=== PATIENT | female | born 1985 | race Caucasian/White ===

== ENCOUNTER 2021-02-01 09:26 | Emergency (ER) | payer OTHER, SELFPAY ==
--- NOTE | ~2021-02-01 | XR_ITS ---
EXAMINATION: XR ribs BI 3V w CXR 2V EXAM DATE: 02/01/2021 10:15 INDICATION: Bilateral rib pain, chest pain. No known recent injury. TECHNIQUE: Frontal projection of the upper left ribs, frontal projection of the lower left ribs, obli que projection of the left ribs. Frontal projection of the upper right ribs, frontal projection of t he lower right ribs, oblique projection of the right ribs, frontal and lateral chest x-ray(s) for in terpretation. There is no prior study for comparison. FINDINGS: There are no displaced acute rib fractures identified. There are no osteoblastic or osteol ytic lesions identified. Cardiomediastinal silhouette is normal. No confluent consolidation, pneumoth orax or pleural effusion suspected. IMPRESSION: Unremarkable chest x-ray, bilateral rib exam. Reviewed, dictated and finalized at location A.
[2021-02-01 09:33] VITALS: BP 142/81; PULSE 100; RESP 12; TEMP 36.3; O2SAT 100
[2021-02-01 09:42] VITALS: PULSE 91
--- NOTE | 2021-02-01 09:59 | ECG_ITS ---
Measurements Intervals [place] Rate: 75 P: 60 TN: 148 QRS: 60 QRSD: 91 T: 15 QT: 373 QTc: 419 Interpretive Statements SINUS RHYTHM BORDERLINE ST-T WAVE ABNORMALITY- INFERIOR LEADS BASELINE ARTIFACT- II, III, AVF, V3-V6 BORDERLINE ECG Electronically Signed On 02-01-2021 14:27:59 CDT by Cachorro Block D.O.
--- NOTE | 2021-02-01 10:05 | PC.NURSE ---
Pt to XY via stretcher at this time.
[2021-02-01 10:12] LABS: Basophils Percent Auto 0.4 % (0.2-1.2); Eosinophils Absolute Auto 0.1 K/mm3 (0-0.3); Eosinophils Percent Auto 2.5 % (0-4.4); Hematocrit 39.4 % (37.0-47.0); Immature Granulocyte Absolute 0.02 K/mm3 (0.00-0.031); Immature Granulocyte Percent A 0.4 % (0-0.5); Lymphocytes Absolute Auto 1.87 K/mm3 (0.9-3.2); Lymphocytes Percent Auto 36.2 % (18.3-44.2); Mean Corpuscular Hemoglobin 29.3 pg (26-34); Mean Corpuscular Volume 88.9 fl (80-100); Mean Platelet Volume 9.6 fl (7.4-10.4); Monocytes Absolute Auto 0.6 K/mm3 (0.1-0.6); Monocytes Percent Auto 12.2 % (2.6-8.5); Neutrophils Absolute Auto 2.5 K/mm3 (1.3-6.7); Neutrophils Percent Auto 48.3 % (45.5-73.1); Platelet Count Result 282 k/mm3 (150-375); Red Blood Count 4.43 M/mm3 (4.2-5.4); Red Cell Distribution Width 13.5 % (11.5-14.5); White Blood Count 5.2 K/mm3 (4.5-10.0)
[2021-02-01 10:23] LABS: Anion Gap 8 mmol/L (8-16); Blood Urea Nitrogen 9 mg/dL (7-17); Calcium 9.3 mg/dL (8.4-10.2); Carbon Dioxide 26 mmol/L (22-30); Chloride 105 mmol/L (98-107); Estimated CRCL calculation 66 ml/min; Estimated Glomerular Filt Rate > 60; Glucose 100 mg/dL (65-105); INR 0.9; Potassium 3.7 mmol/L (3.4-5.0); Prothrombin Time 12.7 Seconds (11.1-14.7); Sodium 139 mmol/L (137-145)
[2021-02-01 10:25] LABS: Partial Thromboplastin Time 26.7 SECONDS (22.3-36.8)
[2021-02-01 10:35] LABS: Troponin I < 0.012 ng/mL (0.000-0.034)
--- NOTE | 2021-02-01 10:37 | ED.GENADULT ---
HPI - General Adult General Chief complaint: Unspecified Stated complaint: rib pain Time Seen by Provider: 02/01/21 09:57 Source: patient Mode of arrival: ambulatory Limitations: no limitations History of Present Illness HPI narrative: This is a 35 year old female that presents to the ER for bilateral rib pain x 1 month. Reports the pain is squeezing in nature. She has been seeing her primary doctor for this who ordered an outpatient CT scan, but the pain became more sharp today so she decided to come to the ED to be seen. Pain is worse with palpation of the area. Denies fever, cough, shortness of breath, recent travel or surgery, or lower extremity edema. Related Data Home Medications Medication Instructions Recorded Confirmed cyclobenzaprine mg 02/01/21 drospirenone-ethinyl estradiol tablet 02/01/21 [Nat] Allergies Allergy/AdvReac Type Severity Reaction Status Date / Time No Known Allergies Allergy Mild Verified 02/01/21 09:42 Review of Systems Review of Systems: Narrative: CONSTITUTIONAL: Denies fever CARDIOVASCULAR: Reports chest pain. Denies edema. RESPIRATORY: Denies cough or dyspnea. All systems reviewed & are unremarkable except as noted in HPI and below PMFSH Past Medical History Medical History (Updated 02/01/21 @ 12:12 by Background Daemon) Chest wall pain No active medical problems Social History Social History Smoking status: Never smoker Alcohol intake: current Gender identity (if verbalized by the patient): Female Exam Narrative: Exam Narrative: GENERAL: Well-appearing, well-nourished, and in no acute distress. HEAD: Normocephalic, atraumatic. EYES: EOMI. CHEST: Clear to auscultation. No respiratory distress. No wheezes rales or rhonchi. Tender to palpation of lower, lateral chest wall bilaterally HEART: Regular rate and rhythm. No murmur heard. Normal peripheral pulses. EXTREMITIES: Normal range of motion. No edema. SKIN: Warm, dry, no rash. NEURO: No focal deficits. Alert and oriented x3. PSYCH: Normal mood and affect Course Vital Signs Vital signs: Vital Signs Temperature 97.3 F L 02/01/21 09:33 Pulse Rate 100 02/01/21 09:33 Respiratory Rate 12 02/01/21 09:33 Blood Pressure 142/81 H 02/01/21 09:33 Pulse Oximetry 100 02/01/21 09:33 Temperature 97.3 F L 02/01/21 09:33 Pulse Rate 91 02/01/21 09:42 Respiratory Rate 12 02/01/21 09:33 Blood Pressure 142/81 H 02/01/21 09:33 Pulse Oximetry 100 02/01/21 09:33 Medical Decision Making MDM Narrative Medical decision making narrative: Patient presents the emergency department for bilateral rib pain present over the last month. She is afebrile and nontoxic-appearing. Oxygen saturation is normal on room air. CBC and metabolic panel without concerning findings. Bilateral rib/chest x-ray is without acute changes. EKG without concerning changes and baseline troponin is negative. D-dimer is not elevated. Pain does seem to be more musculoskeletal as she is tender to palpation in the area. Patient is stable and felt appropriate for further outpatient evaluation. Patient instructed to follow-up with her primary care provider. She was given warnings to return to the ER Vital Signs Vital Signs: Vital Signs Temperature 97.3 F L 02/01/21 09:33 Pulse Rate 100 02/01/21 09:33 Respiratory Rate 12 02/01/21 09:33 Blood Pressure 142/81 H 02/01/21 09:33 Pulse Oximetry 100 02/01/21 09:33 Temperature 97.3 F L 02/01/21 09:33 Pulse Rate 91 02/01/21 09:42 Respiratory Rate 12 02/01/21 09:33 Blood Pressure 142/81 H 02/01/21 09:33 Pulse Oximetry 100 02/01/21 09:33 Lab Data Lab results reviewed: Yes I reviewed the patient's lab results. Result diagrams: 02/01/21 10:05 02/01/21 10:05 Labs: Lab Results 02/01/21 02/01/21 02/01/21 Range/Units 10:05 10:05 10:05 WBC 5.2 (4.5-10.0) K/mm3 RBC 4.43 (4.2-5.4) M/mm3 Hgb 13.0 (12.0-1
[2021-02-01 10:40] LABS: D Dimer 0.36 ug/mL (<0.48)
[2021-02-01] MEDS: ACETAMINOPHEN 500 MG TABLET 1000 MG PO (11:06)
[2021-02-01] MEDS: KETOROLAC 30 MG/ML VIAL (*BKC) IV PUSH (11:06)
[2021-02-01 12:21] VITALS: BP 116/63; PULSE 79; RESP 16; O2SAT 100
== END 2021-02-01 12:22 | disposition home or self-care (01) ==
PROVIDERS: Physician Assistant; Emergency Provider Emergency Medicine; PCP Nurse Practitioner Family
DX: R07.81 Pleurodynia (principal)
CPT/HCPCS: 36415; 71046; 71110; 80048; 84484; 85025; 85380; 85610; 85730; 93005; 96374; 99284; A9270; J1885

== ENCOUNTER 2021-02-04 14:43 | Outpatient (CLI) | payer OTHER, SELFPAY ==
--- NOTE | ~2021-02-04 | CT_ITS ---
EXAMINATION: CTA chest PE protocol DATE: 02/04/2021 15:13 INDICATION: Thoracic back pain. TECHNIQUE: Computed tomography angiography (CTA) of the chest was performed with 100 mL Omnipaque-350 intravenous contrast timed to evaluate the pulmonary arteries. Coronal maximum intensity projection 3D-reconstructions were created by the technologist. Automated exposure control and iterative reconst ruction technique were employed. The dose-length product was 193.48 mGy-cm. COMPARISON: None. FINDINGS: There is a 3 mm nodule in right lung upper lobe, likely benign. There is minimal atelectasi s in right lower lobe. No pleural effusion. The heart size is normal. There is mediastinal and bilate ral hilar lymphadenopathy. For example, a right paratracheal node measures 2.7 x 2.2 cm. A right supr aclavicular node measures 19 x 10 mm. There is no pulmonary embolus. There is mild thoracic spondylos is. IMPRESSION: 1. No pulmonary embolus. 2. Mediastinal, bilateral hilar, and right supraclavicular lymphadenopathy. The differential diagnosi s includes reactive lymphadenopathy such as sarcoid and lymphoma. Ultrasound-guided core needle biops y of a right supraclavicular lymph node is recommended. Reviewed, dictated and finalized at location A. IMPRESSION: 1. No pulmonary embolus. 2. Mediastinal, bilateral hilar, and right supraclavicular lymphadenopathy. The differential diagnosis includes reactive lymphadenopathy such as sarcoid and l ymphoma. Ultrasound-guided core needle biopsy of a right supraclavicular lymph node is recommended.
== END 2021-02-04 14:44 | disposition home or self-care (01) ==
PROVIDERS: PCP Nurse Practitioner Family; Visit Provider Nurse Practitioner Family
DX: M54.6 Pain in thoracic spine (principal); R91.8 Other nonspecific abnormal finding of lung field
CPT/HCPCS: 71275; Q9967

== ENCOUNTER 2021-02-15 12:43 | Outpatient (CLI) | payer OTHER, SELFPAY ==
--- NOTE | ~2021-02-15 | US_ITS ---
EXAMINATION: US biopsy lymph node DATE: 02/15/2021 13:53 INDICATION: Right supraclavicular lymphadenopathy. TECHNIQUE: The procedure including the risks and benefits was discussed with the patient. Risks discu ssed included bleeding and infection. The patient understood the risks and agreed to proceed. The sk in overlying the right supraclavicular region was prepped and draped in usual sterile fashion. Anest hetic was administered with 1% lidocaine subcutaneously. An 18 gauge core biopsy needle was advanced under continuous ultrasound observation to the lesion of interest. 8 core biopsy specimens were obt ained, 3 were placed in formalin and 5 in RPMI media. The needle was removed and the entry site was cleaned and dressed. Post procedure ultrasound demonstrated no hemorrhage. FINDINGS: Ultrasound images demonstrate a 1.8 x 1.7 x 0.7 cm right supraclavicular lymph node. Subseq uent images demonstrate biopsy needle advanced into the lymph node. IMPRESSION: 1. Successful Ultrasound-guided biopsy of a 1.8 x 1.7 x 0.7 cm right supraclavicular lymph node. Reviewed, dictated and finalized at location A. IMPRESSION: 1. Successful Ultrasound-guided biopsy of a 1.8 x 1.7 x 0.7 cm right supraclavi cular lymph node.
== END 2021-02-15 12:44 | disposition home or self-care (01) ==
LOC: ANHIMG 12:44
PROVIDERS: PCP Nurse Practitioner Family; Visit Provider Nurse Practitioner Family
DX: R59.0 Localized enlarged lymph nodes (principal)
CPT/HCPCS: 38505; 76942; 88305; 88312

== ENCOUNTER 2021-03-21 15:29 | Outpatient (CLI) | payer OTHER, SELFPAY ==
--- NOTE | ~2021-03-21 | US_ITS ---
EXAMINATION: US thyroid EXAM DATE: 03/21/2021 16:32 INDICATION: Localized neck swelling, mass, lump. TECHNIQUE: Multiple grayscale and Doppler images of the thyroid were obtained (by a technologist who performed the scan) and subsequently reviewed. Individual nodules and recommendations may be reporte d in accordance with TI-RADS system as designated by the 2017 ACR White Paper TI-RADS committee. The re is no prior study for comparison. FINDINGS: The right thyroid lobe measures 4.5 x 1.1 x 1.0 cm, the left 4.0 x 0.7 x 1.1 cm. These dimensions are within normal size limits. There is homogeneous thyroid echogenicity and expected amount of vascular ity. No focal suspicious nodules are identified. IMPRESSION: 1. Unremarkable thyroid ultrasound exam. Reviewed, dictated and finalized at location G.
[2021-03-21 16:32] LABS: Alanine Aminotransferase 14 U/L (4-35); Albumin Level 4.4 g/dL (3.5-5.1); Alkaline Phosphatase 45 U/L (38-126); Anion Gap 8 mmol/L (8-16); Aspartate Amino Transferase 23 U/L (14-36); Bilirubin,Total 0.5 mg/dL (0.2-1.3); Blood Urea Nitrogen 5 mg/dL (7-17); Calcium 9.2 mg/dL (8.4-10.2); Carbon Dioxide 26 mmol/L (22-30); Chloride 104 mmol/L (98-107); Estimated Glomerular Filt Rate > 60; Glucose 92 mg/dL (65-105); Potassium 3.7 mmol/L (3.4-5.0); Sodium 138 mmol/L (137-145)
[2021-03-21 17:32] LABS: Vitamin D 25 Hydroxy 37.8 ng/mL
[2021-03-26 05:09] LABS: Vitamin D 1,25 (OH)2 Total 27 pg/mL (18-72); Vitamin D2 1,25 (OH)2 <8 pg/mL; Vitamin D3 1,25 (OH)2 27 pg/mL
== END 2021-03-21 15:30 | disposition home or self-care (01) ==
PROVIDERS: PCP Nurse Practitioner Family; Visit Provider Nurse Practitioner Family
DX: R07.89 Other chest pain (principal); R53.82 Chronic fatigue, unspecified; D86.9 Sarcoidosis, unspecified; R22.1 Localized swelling, mass and lump, neck; R06.09 Other forms of dyspnea; Z51.81 Encounter for therapeutic drug level monitoring; Z79.899 Other long term (current) drug therapy
CPT/HCPCS: 36415; 76536; 80053; 82306; 82652

== ENCOUNTER 2021-04-05 12:31 | Outpatient (CLI) | payer OTHER, SELFPAY ==
--- NOTE | 2021-04-05 | ECHO_ITS ---
Patient Info Name: Sonal Marshall Age: 35 years : 1985 Gender: Female Ht: 64 in Wt: 154 lbs BSA: 1.79 m2 HR: 69 bpm BP: 111 / 76 mmHg Heart Rhythm: Sinus Rhythm Technical Quality: Good Exam Date: 04/05/2021 1:31 PM Exam Location: [facility] Patient Status: Outpatient Admit Date: 04/05/2021 Staff Ordering Physician: WALTER LAW MD Plastic Surgery Assistant: Marco Antonio Romano RDCS, RT Attending Provider: WALTER LAW MD Exam Type: CA echo doppler color flow Study Info Complete two-dimensional, color flow and Doppler transthoracic echocardiogram is performed. Strain analysis performed. Summary 1. Complete two-dimensional, color flow and Doppler transthoracic echocardiogram is performed. 2. Unremarkable 2D/Doppler echocardiogram. Left Ventricle Left ventricular chamber dimension is normal. Left ventricular systolic function is normal, estimated at 55-60%. The left ventricular diastolic function is normal. Right Ventricle Right ventricular chamber dimension is normal. Left Atria Left atrial chamber dimension is normal. Right Atria Right atrial chamber dimension is normal. Aortic Valve The aortic valve is normal. Pulmonic Valve The pulmonic valve is normal. Mitral Valve The mitral valve has normal leaflets. Tricuspid Valve The tricuspid valve leaflets are normal. Pericardium/Pleural The pericardium appears normal. Aorta The aortic root size at the sinus of Valsalva is normal. Left Ventricular Outflow Tract Name Value Normal LVOT 2D LVOT Diameter 2.0 cm LVOT Doppler LVOT Peak Gradient 4 mmHg LVOT Mean Gradient 2 mmHg LVOT VTI 19 cm LVOT VTI/AV VTI Ratio 0.7 LVOT Stroke Volume 56 ml LVOT CO 3.8 l/min LVOT CI 2.1 l/min/m2 Mitral Valve Name Value Normal MV Doppler MV Decel [place] 272 cm/s2 MV PHT 68 ms MV Area (PHT) 3.2 cm2 4.0-5.0 MV Diastolic Function MV E Peak Velocity 64 cm/s MV A Peak Velocity 68 cm/s MV E/A 0.9 MV Decel Time 234 ms MV Annular TDI MV E/e' (Septal) 5.5 <=8.0 MV E/e' (Lateral) 5.8 <=8.0 MV E/e' (Average) 5.7 Tricuspid Valve Name Value N
--- NOTE | 2021-04-05 16:16 | WPDPFTINT ---
PFT Procedure Performed PFT Procedure Performed Spirometry with Pre/Post Bronchodilator Plethysmography (Lung Vol) Diffusing Cap (DLCO) Flow Vol Loop PFT Interpretation This is a pulmonary function test with pre and post-bronchodilator spirometry, plethysmography and diffusing capacity. The test was performed and results interpreted in accordance with the 2019 and 2005 ATS/ERS Task Force guidelines respectively using the Global Lung Function Initiative-2012 reference equations. Patient demonstrated good effort and cooperation. Reproducibility criteria were met. The quality of the pre bronchodilator spirometry maneuver was Grade A and post bronchodilator spirometry maneuver was Grade A. Findings: Spirometry: The contour of the inspiratory and expiratory flow tracing are normal. The pre bronchodilator FVC is 3.79 L, 100% predicted. The pre bronchodilator FEV1 is 2.92 L, 93% predicted. The FEV1: FVC ratio 77%. The post bronchodilator FVC is 3.66 L, representing a 3% decrease. The post bronchodilator FEV1 is 3.02 L, representing a 3% increase. Plethysmography: The total lung capacity is 5.23 L, 103% predicted. The functional residual capacity is 2.17 L, 78% predicted. The residual volume is 1.44 L, 97% predicted. Diffusing capacity: The absolute diffusion capacity is 19.6, 80% predicted. The diffusing capacity corrected for alveolar volume is 4.52, 93% predicted. Impression: The spirometry is normal without evidence of an obstructive abnormality. There is no significant improvement after inhaling a single dose of albuterol. The lung volumes are normal. The diffusing capacity is normal. There are no prior studies for comparison
== END 2021-04-05 12:32 | disposition home or self-care (01) ==
PROVIDERS: PCP Nurse Practitioner Family
DX: R07.89 Other chest pain (principal); D86.9 Sarcoidosis, unspecified; R06.09 Other forms of dyspnea; R53.82 Chronic fatigue, unspecified
CPT/HCPCS: 93306; 94060; 94726; 94729

== ENCOUNTER 2021-05-01 16:45 | Outpatient (CLI) | payer OTHER, SELFPAY ==
[2021-05-03 21:30] LABS: Angiotensin Converting Enzyme 35 U/L (9-67)
[2021-05-10 10:33] LABS: TB2-NIL 0.01
[2021-05-10 10:34] LABS: TB1-NIL 0.02
[2021-05-10 10:41] LABS: NIL 0.02; Quantiferon TB Plus, 1T Negative
== END 2021-05-01 16:46 | disposition home or self-care (01) ==
PROVIDERS: PCP Nurse Practitioner Family
DX: R07.89 Other chest pain (principal); R06.09 Other forms of dyspnea; D86.9 Sarcoidosis, unspecified
CPT/HCPCS: 36415; 82164; 84443; 86480

== ENCOUNTER 2021-06-18 10:48 | Outpatient (CLI) | payer OTHER, SELFPAY ==
--- NOTE | ~2021-06-18 | XR_ITS ---
XR wrist RT 2V, XR wrist LT 2V 06/18/2021 11:36 Indication: Rheumatoid arthritis Procedure: 2 views of each wrist Comparison: No prior studies for comparison. Findings: There is anatomic alignment. No fracture, subluxation or dislocation. No significant degene rative or erosive change. No soft tissue abnormality. No foreign bodies. Impression: 1: No significant bone or joint abnormality. Reviewed, dictated and finalized at location A. Impression: 1: No significant bone or joint abnormality. Impression: 1: No significant bone or joint abnormality.
--- NOTE | ~2021-06-18 | XR_ITS ---
XR knee LT 2V 06/18/2021 11:37 INDICATION: Rheumatoid arthritis PROCEDURE: 2 views left knee COMPARISON: No prior studies for comparison. FINDINGS: Fracture, dislocation or subluxation is not identified. No significant joint effusion. No e rosive changes. The soft tissues appear within normal limits. No foreign bodies are identified. IMPRESSION: 1: No significant bone or joint abnormality. Reviewed, dictated and finalized at location A.
--- NOTE | ~2021-06-18 | XR_ITS ---
XR hand BI arthritis min 3V 06/18/2021 11:36 Indication: Rheumatoid arthritis Procedure: 4 views each hand Comparison: No prior studies for comparison. Findings: There is anatomic alignment. No fracture, subluxation or dislocation. No significant soft t issue abnormality. No foreign bodies. Impression: 1: No significant bone or joint abnormality. Reviewed, dictated and finalized at location A. Impression: 1: No significant bone or joint abnormality.
--- NOTE | ~2021-06-18 | XR_ITS ---
XR elbow RT 2V, XR elbow LT 2V 06/18/2021 11:37 Indication: Rheumatoid arthritis Procedure: 2 views each elbow Comparison: No prior studies for comparison. Findings: There is anatomic alignment. No fracture, subluxation or dislocation. No significant soft t issue abnormality. No foreign bodies. Impression: 1: No significant bone or joint abnormality. Reviewed, dictated and finalized at location A. Impression: 1: No significant bone or joint abnormality. Impression: 1: No significant bone or joint abnormality.
--- NOTE | ~2021-06-18 | XR_ITS ---
XR hip RT min 2V, XR hip LT min 2V 06/18/2021 11:37 Indication: Rheumatoid arthritis Procedure: 2 views each hip Comparison: No prior studies for comparison. Findings: There is anatomic alignment. No fracture, subluxation or dislocation. No significant soft t issue abnormality. No foreign bodies. Impression: 1: No significant bone or joint abnormality. Reviewed, dictated and finalized at location A. Impression: 1: No significant bone or joint abnormality. Impression: 1: No significant bone or joint abnormality.
--- NOTE | ~2021-06-18 | XR_ITS ---
XR knee RT 2V 06/18/2021 11:37 Indication: Rheumatoid arthritis Procedure: 2 views right knee Comparison: No prior studies for comparison. Findings: There is anatomic alignment. No fracture, subluxation or dislocation. No significant soft t issue abnormality. No foreign bodies. Impression: 1: No significant bone or joint abnormality. Reviewed, dictated and finalized at location A. Impression: 1: No significant bone or joint abnormality.
[2021-06-18 12:27] LABS: Hematocrit 39.4 % (37.0-47.0); Hemoglobin 12.9 g/dL (12.0-15.0); Mean Corpuscular HGB Conc 32.7 g/dl (32-36); Mean Corpuscular Hemoglobin 29.7 pg (26-34); Mean Corpuscular Volume 90.6 fl (80-100); Platelet Count Result 293 k/mm3 (150-375); Red Blood Count 4.35 M/mm3 (4.2-5.4); Red Cell Distribution Width 14.1 % (11.5-14.5); White Blood Count 7.6 K/mm3 (4.5-10.0)
[2021-06-18 12:44] LABS: Add Urine Microscopic? YES; Appearance Urine Clear (Clear); Bacteria Urine Trace /hpf; Bilirubin Urine Negative (Negative); Blood Urine 1+ (Negative); Color Urine Yellow (Yellow); Glucose Urine UA Negative (Negative); Ketones Urine Negative (Negative); Leukocyte Esterase Ur Negative LEU/UL (NEGATIVE); Mucus Urine Rare /lpf; Nitrate Urine Negative (Negative); Protein Urine 1+ mg/dL (Negative); RBC Urine 0-2 /hpf (0-2); Specific Grav Ur 1.015 (1.001-1.035); Squamous Epithelial Cell Urine Moderate /hpf (Few); Urobilinogen Urine Negative mg/dL (<2.0); WBC Urine 0-3 /hpf (0-3)
[2021-06-18 12:47] LABS: Alanine Aminotransferase 49 U/L (4-35); Albumin Level 4.6 g/dL (3.5-5.1); Alkaline Phosphatase 79 U/L (38-126); Anion Gap 9 mmol/L (8-16); Aspartate Amino Transferase 43 U/L (14-36); Bilirubin,Total 0.8 mg/dL (0.2-1.3); Blood Urea Nitrogen 10 mg/dL (7-17); Calcium 9.4 mg/dL (8.4-10.2); Carbon Dioxide 25 mmol/L (22-30); Chloride 101 mmol/L (98-107); Creatine Kinase 40 U/L (30-135); Estimated Glomerular Filt Rate > 60; Glucose 100 mg/dL (65-110); Magnesium 1.8 mg/dL (1.6-2.3); Sodium 135 mmol/L (137-145); Uric Acid 4.3 mg/dL (2.5-7.5)
[2021-06-18 13:07] LABS: Hemoglobin A1C 5.5 % (<5.7)
[2021-06-18 13:32] LABS: Erythrocyte Sedimentation Rate 19 mm/hr (0-20)
[2021-06-18 13:46] LABS: Rheumatoid Factor < 8.6 IU/ML (<12)
[2021-06-18 13:50] LABS: Folic Acid > 20.0 ng/mL (2.76->20)
[2021-06-18 13:55] LABS: Vitamin D 25 Hydroxy 44.7 ng/mL
[2021-06-18 14:05] LABS: CRP < 0.5 mg/dL (<1.0)
[2021-06-20 11:09] LABS: Anti Nuclear Antibody Pattern Nuclear, Nucleolar
== END 2021-06-18 10:49 | disposition home or self-care (01) ==
LOC: ANHIMG 10:56
PROVIDERS: PCP Nurse Practitioner Family; Visit Provider Internal Medicine Rheumatology
DX: R53.83 Other fatigue (principal); M25.50 Pain in unspecified joint; E83.42 Hypomagnesemia; Z13.1 Encounter for screening for diabetes mellitus; E55.9 Vitamin D deficiency, unspecified; E53.8 Deficiency of other specified B group vitamins; Z51.81 Encounter for therapeutic drug level monitoring
CPT/HCPCS: 36415; 73070; 73100; 73130; 73502; 73560; 80053; 81001; 82306; 82550; 82607; 82746; 83036; 83520; 83735; 84550; 85027; 85652; 86038; 86039; 86140; 86430

== ENCOUNTER 2021-07-16 10:12 | Outpatient (CLI) | payer OTHER, SELFPAY ==
--- NOTE | ~2021-07-16 | MR_ITS ---
EXAMINATION: MR lumbar spine wo con EXAM DATE: 07/16/2021 10:55 INDICATION: Low back pain. TECHNIQUE: Multi-sequential, multiplanar MR images of the lumbar spine were obtained without contrast . Sagittal T1, T2, T2 fat saturation images. Axial T2 weighted images. There is no prior study for comparison. FINDINGS: The vertebral bodies are aligned in the AP dimension. Vertebral body and disc heights are w ell-maintained. There are no suspicious marrow signal abnormalities. Paraspinal soft tissue is unrema rkable. The conus medullaris terminates at the L1 level and has normal signal intensity and morpholog y. Paraspinal soft tissue is unremarkable. Small renal cysts. Level by level evaluation: T12-L1: Disc does not extend beyond the endplate margin. Facet arthropathy: None. Neural foraminal stenosis: No stenosis. Central canal stenosis: No stenosis. L1-L2: Disc does not extend beyond the endplate margin. Facet arthropathy: None. Neural foraminal stenosis: No stenosis. Central canal stenosis: No stenosis. L2-L3: Disc does not extend beyond the endplate margin. Facet arthropathy: None. Neural foraminal stenosis: No stenosis. Central canal stenosis: No stenosis. L3-L4: Disc does not extend beyond the endplate margin. Facet arthropathy: Mild. Neural foraminal stenosis: No stenosis. Central canal stenosis: No stenosis. L4-L5: Disc does not extend beyond the endplate margin. Facet arthropathy: Mild. Neural foraminal stenosis: Mild right. Central canal stenosis: No stenosis. L5-S1: Disc does not extend beyond the endplate margin. Facet arthropathy: Mild. Neural foraminal stenosis: No stenosis. Central canal stenosis: No stenosis. IMPRESSION: 1. Mild facet arthropathy. Reviewed, dictated and finalized at location A. IMPRESSION: 1. Mild facet arthropathy.
== END 2021-07-16 10:13 | disposition home or self-care (01) ==
LOC: ANHIMG 10:18
PROVIDERS: PCP Nurse Practitioner Family; Visit Provider Internal Medicine Rheumatology
DX: M54.59 Other low back pain (principal); D86.0 Sarcoidosis of lung; M47.817 Spondylosis without myelopathy or radiculopathy, lumbosacral region; M48.07 Spinal stenosis, lumbosacral region
CPT/HCPCS: 72148

== ENCOUNTER 2021-07-30 11:15 | Outpatient (CLI) | payer OTHER, SELFPAY ==
[2021-07-30 12:10] LABS: Add Urine Microscopic? YES; Appearance Urine Cloudy (Clear); Bilirubin Urine Negative (Negative); Blood Urine Negative (Negative); Color Urine Yellow (Yellow); Glucose Urine UA Negative (Negative); Ketones Urine Negative (Negative); Leukocyte Esterase Ur Trace LEU/UL (NEGATIVE); Nitrate Urine Negative (Negative); Protein Urine Negative (Negative); Specific Grav Ur 1.013 (1.001-1.035); Squamous Epithelial Cell Urine Few /hpf (Few); Urobilinogen Urine Negative mg/dL (<2.0); WBC Urine 0-3 /hpf (0-3)
[2021-07-30 12:15] LABS: Complement C3 113 mg/dL (88-165)
[2021-08-02 04:16] LABS: Anti Cardiolipin Antibody IgA <2.0 APL-U/mL (<20.0); Anti Cardiolipin Antibody IgG <2.0 GPL-U/mL (<20.0)
[2021-08-02 04:27] LABS: Lupus dRVVT 1:1 Mix Interpreta Not Indicated; Lupus dRVVT Screen 27 sec (<=45); PTT-LA Screen 29 sec (<=40)
[2021-08-04 20:24] LABS: RNP Antibodies <1.0; SS-A <1.0; SS-B <1.0
[2021-08-04 20:33] LABS: Scleroderma 70 Antibody <1.0
[2021-08-05 21:52] LABS: Complement Total CH50 57 U/mL (31-60)
== END 2021-07-30 11:16 | disposition home or self-care (01) ==
LOC: ANHLAB 11:17
PROVIDERS: PCP Nurse Practitioner Family; Visit Provider Internal Medicine Rheumatology
DX: R79.89 Other specified abnormal findings of blood chemistry (principal); M32.9 Systemic lupus erythematosus, unspecified
CPT/HCPCS: 36415; 81001; 85613; 85730; 86146; 86147; 86160; 86162; 86225; 86235

== ENCOUNTER 2021-10-07 08:57 | Outpatient (CLI) | payer OTHER, SELFPAY ==
--- NOTE | ~2021-10-07 | CT_ITS ---
EXAMINATION:CT diagnostic chest wo con DATE: 10/07/2021 09:23 INDICATION: Pulmonary sarcoidosis. TECHNIQUE: Computed tomography (CT) of the chest was performed without intravenous contrast. Automate d exposure control and iterative reconstruction technique were employed. The dose-length product (DLP ) was 138.83 mGy-cm. COMPARISON: Chest CT 02/04/2021 FINDINGS: There is a 4 mm nodule in right lung upper lobe, likely benign. There is minimal scarring a t left lung apex. No pleural effusion. There is mediastinal lymphadenopathy. For example, an 1.7 x 1. 3 cm right paratracheal node previously measured 2.5 x 1.7 cm. The heart size is normal. No pericardi al effusion. There is mild thoracic spondylosis. IMPRESSION: 1. Mediastinal lymphadenopathy with interval improvement, consistent with sarcoid. Reviewed, dictated and finalized at location A. OPERATOR IMPRESSION: 1. Mediastinal lymphadenopathy with interval improvement, consistent with sarco id.
--- NOTE | 2021-10-07 15:59 | WPDPFTINT ---
PFT Procedure Performed PFT Procedure Performed Spirometry with Pre/Post Bronchodilator Plethysmography (Lung Vol) Diffusing Cap (DLCO) Flow Vol Loop PFT Interpretation This is a pulmonary function test with pre and post-bronchodilator spirometry, plethysmography and diffusing capacity. The test was performed and results interpreted in accordance with the 2019 and 2005 ATS/ERS Task Force guidelines respectively using the Global Lung Function Initiative-2012 reference equations. Patient demonstrated good effort and cooperation. Reproducibility criteria were met. The quality of the pre bronchodilator spirometry maneuver was Grade A and post bronchodilator spirometry maneuver was Grade A. Findings: Spirometry: The contour the inspiratory and expiratory flow tracing are normal. The pre bronchodilator FVC is 3.74 L, 99% predicted. The pre bronchodilator FEV1 is 2.99 L, 96% predicted. The FEV1: FVC ratio was 80%. The post bronchodilator FVC is 3.63 L, representing a 3% decrease. The post bronchodilator FEV1 is 3.01 L, representing a 1% increase. The post bronchodilator FEV1: FVC ratio was 83%. Plethysmography: The total lung capacity is 4.63 L, 91% predicted. Functional residual capacity is 2.08 L, 74% predicted. The residual volume is 0.89 L, 59% predicted. Diffusing capacity: The absolute diffusion capacity is 19.4, 80% predicted. The diffusing capacity corrected for alveolar volume is 4.41, 91% predicted. In comparison to previous pulmonary function test performed on 04/05/2021 the post bronchodilator FVC is unchanged from 3.66 L to 3.63 L. The post bronchodilator FEV1 is unchanged from 3.02 L to 3.01 L. The total lung capacity has decreased from 5.23 L to 4.63 L. The functional residual capacity is unchanged from 2.17 L to 2.08 L. The residual volume has decreased from 1.44 L to 0.89 L. The absolute diffusing capacity is unchanged from 19.6 to 19.4. The diffusing capacity corrected for alveolar volume is unchanged from 4.52 to 4.41 Impression: The spirometry is normal without evidence of an obstructive abnormality. There is no significant improvement after inhaling a single dose of albuterol. The lung volumes are normal. The diffusing capacity is normal. when compared to previous pulmonary function test on 04/05/2021 there has been a greater than anticipated time dependent decrease in total lung capacity and residual volume with no significant change in the post bronchodilator FVC, FEV1, functional residual capacity, absolute diffusing capacity or diffusing capacity corrected for alveolar volume. Clinical correlation is recommended. There are no prior studies for comparison
== END 2021-10-07 08:58 | disposition home or self-care (01) ==
LOC: ANHIMG 09:05
PROVIDERS: PCP Nurse Practitioner Family; Visit Provider Nurse Practitioner
DX: D86.9 Sarcoidosis, unspecified (principal); R59.0 Localized enlarged lymph nodes
CPT/HCPCS: 71250; 94060; 94726; 94729

== ENCOUNTER 2021-10-17 21:22 | Emergency (ER) | payer OTHER, SELFPAY ==
--- NOTE | ~2021-10-17 | CT_ITS ---
EXAMINATION: CT abdomen pelvis wo con DATE: 10/17/2021 23:58 INDICATION: Right flank pain TECHNIQUE: Computed tomography (CT) of the abdomen and pelvis was performed without intravenous contr ast. Automated exposure control and iterative reconstruction technique were employed. Exam dose: 452 .01 mGy-cm total exam DLP. COMPARISON: 10/17/2021 KUB FINDINGS: The lung bases are clear of infiltrate or consolidation. Normal heart size. No pericardial or pleural effusion. The liver, spleen, pancreas, gallbladder, bile ducts, pancreatic duct, adrenal glands and kidneys are unremarkable with the exception of a small nonobstructing upper pole right renal calculus. No ureter al calculus or hydroureteronephrosis is evident. Normal caliber of the abdominal aorta. No intraperitoneal or retroperitoneal or pelvic mass lesion or adenopathy or ascites is detected. Normal appendix. No bowel obstruction, bowel wall thickening, pneumatosis or intraperitoneal free air is detected. The uterus, adnexal areas and urinary bladder are unremarkable. No suspicious osteolytic or osteoblastic lesions. IMPRESSION: Small nonobstructing upper pole right renal calculus No ureteral calculus or hydroureteronephrosis is detected Normal appendix Reviewed, dictated and finalized at [facility]. Reviewed, dictated and finalized at [facility]. OW ASSISTANT
--- NOTE | ~2021-10-17 | XR_ITS ---
XR abdomen/kub 1V DATE: 10/17/2021 23:59 INDICATION: Right flank pain for 2 weeks, worsening TECHNIQUE: AP projection, 2 views COMPARISON: 10/17/[address] abdomen pelvis FINDINGS: No visceromegaly. Associated as are intact. No evidence of bowel obstruction. Scattered yodit ateral calcified pelvic phleboliths. IMPRESSION: Nonspecific abdomen Reviewed, dictated and finalized at [facility]. Reviewed, dictated and finalized at [facility]. NESS UNIT CONTROLLER IMPRESSION: Nonspecific abdomen
[2021-10-17 21:32] VITALS: BP 141/85; PULSE 101; RESP 17; TEMP 36.7; O2SAT 98
--- NOTE | 2021-10-17 23:39 | ED.GENADULT ---
HPI - General Adult General Chief complaint: Abdominal Pain Stated complaint: right flank pain Time Seen by Provider: 10/17/21 23:14 Source: patient and RN notes reviewed Mode of arrival: ambulatory Limitations: no limitations History of Present Illness HPI narrative: This is 36 year old female who presents for evaluation of right flank pain. She reports having right flank pain for 2 weeks. This pain has been constant but it was intermittently worsen. She has been taking ibuprofen for her pain without relief. She had telehealth appointment with PCP and she was prescribed tramadol and muscle relaxer. She continues to have pain and she states her urine is now cloudy. She also reports nausea and temperature 99F. She denies abnormal vaginal discharge. She denies any injury. She does reports her pain is worse with bending and movement. She rates pain 8/10. Related Data Home Medications Medication Instructions Recorded Confirmed cyclobenzaprine mg 02/01/21 drospirenone-ethinyl estradiol tablet 02/01/21 [Nat] Allergies Allergy/AdvReac Type Severity Reaction Status Date / Time No Known Allergies Allergy Mild Verified 10/18/21 00:12 Review of Systems Review of Systems: All systems reviewed & are unremarkable except as noted in HPI and below PMFSH Past Medical History Medical History (Updated 10/18/21 @ 00:53 by Rupa Shelton MD) Chest wall pain Ovarian cyst Surgical History Surgical History (Updated 10/17/21 @ 23:46 by uRpa Shelton MD) H/O oophorectomy Social History Social History Smoking status: Never smoker Alcohol intake: current Gender identity (if verbalized by the patient): Female Exam Const: General: no acute distress and alert Orientation/consciousness: patient oriented x3 Eyes: EOM: EOMs intact bilaterally Resp: Effort & Inspection: normal respiratory effort and no retractions Auscultation: clear to auscultation bilaterally Cardio: Rate: regular rate Rhythm: regular rhythm Heart sounds: no murmurs GI: GI Palp: Yes Soft to palpation, Yes Tenderness to palpation present (GI) (RLQ), No Guarding due to palpation present (GI) and No Rigid due to palpation Auscultation: normal bowel sounds : General: Yes CVA tenderness on the right Skin: General skin exam: normal color Rashes: no rashes Neuro: General: patient oriented x3, moves all extremities and CN's II-XI intact bilaterally Extrem: General: normal to inspection Psych: Mental Status: mental status grossly normal Affect: normal affect Course Reevaluation(s) Reevaluation #1: I discussed with patient CT results showing it is unremarkable other than small right kidney stone. She is happy with results. She has no further questions. 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 Date: 10/18/21 Time: 00:49 Vital Signs Vital signs: Vital Signs Temperature 98.1 F 10/17/21 21:32 Pulse Rate 101 H 10/17/21 21:32 Respiratory Rate 17 10/17/21 21:32 Blood Pressure 141/85 H 10/17/21 21:32 Pulse Oximetry 98 10/17/21 21:32 Temperature 98.1 F 10/17/21 21:32 Pulse Rate 97 10/18/21 01:16 Respiratory Rate 18 10/18/21 01:16 Blood Pressure 129/85 10/18/21 01:16 Pulse Oximetry 100 10/18/21 01:16 Medical Decision Making Vital Signs Vital Signs: Vital Signs Temperature 98.1 F 10/17/21 21:32 Pulse Rate 101 H 10/17/21 21:32 Respiratory Rate 17 10/17/21 21:32 Blood Pressure 141/85 H 10/17/21 21:32 Pulse Oximetry 98 10/17/21 21:32 Temperature 98.1 F 10/17/21 21:32 Pulse Rate 97 10/18/21 01:16 Respiratory Rate 18 10/18/21 01:16 Blood Pressure 129/85 10/18/21 01:16 Pulse Oximetry 100 10/18/21 01:16 Lab Data Lab results reviewed: Yes I reviewed the patient's lab results. Result diagrams: 10/18/21 00:25 10/18/21 00:25 Labs: Lab Results 10/17/21 10/18/21 10/18/21 Range/Units 23:31 00:
[2021-10-17 23:41] LABS: Add Urine Microscopic? YES; Appearance Urine Clear (Clear); Bacteria Urine Trace /hpf; Bilirubin Urine 1+ (Negative); Blood Urine Negative (Negative); Color Urine Yellow (Yellow); Glucose Urine UA Negative (Negative); Ketones Urine Negative (Negative); Leukocyte Esterase Ur Negative LEU/UL (Negative); Nitrate Urine Negative (Negative); Protein Urine Negative (Negative); Specific Grav Ur 1.026 (1.001-1.035); Squamous Epithelial Cell Urine Rare /hpf (Few); Urobilinogen Urine Negative mg/dL (<2.0); WBC Urine 0-3 /hpf
[2021-10-17 23:42] LABS: Mucus Urine Rare /lpf
--- NOTE | 2021-10-17 23:52 | PC.NURSE ---
Pt to CT at this time.
[2021-10-18 00:18] VITALS: BP 126/82; PULSE 91; RESP 16; O2SAT 100
[2021-10-18] MEDS: LACTATED RINGERS 1,000 ML 999 ML IV CONT (00:19)
[2021-10-18] MEDS: ONDANSETRON INJ 4 MG/2 ML VIAL IV PUSH (00:20)
[2021-10-18] MEDS: MORPHINE SULFATE (*CRX) 4 MG/ML INJ IV PUSH (00:22)
[2021-10-18 00:31] LABS: Basophils Percent Auto 0.3 % (0.2-1.2); Eosinophils Percent Auto 0.3 % (0-4.4); Hematocrit 37.8 % (37.0-47.0); Hemoglobin 12.8 g/dL (12.0-15.0); Immature Granulocyte Absolute 0.04 K/mm3 (0.00-0.031); Immature Granulocyte Percent A 0.3 % (0-0.5); Lymphocytes Absolute Auto 1.79 K/mm3 (0.9-3.2); Lymphocytes Percent Auto 14.8 % (18.3-44.2); Mean Corpuscular HGB Conc 33.9 g/dl (32-36); Mean Corpuscular Hemoglobin 29.8 pg (26-34); Mean Corpuscular Volume 88.1 fl (80-100); Mean Platelet Volume 9.7 fl (7.4-10.4); Monocytes Absolute Auto 0.6 K/mm3 (0.1-0.6); Monocytes Percent Auto 4.6 % (2.6-8.5); Neutrophils Absolute Auto 9.6 K/mm3 (1.3-6.7); Neutrophils Percent Auto 79.7 % (45.5-73.1); Platelet Count Result 302 k/mm3 (150-375); Red Blood Count 4.29 M/mm3 (4.2-5.4); Red Cell Distribution Width 12.9 % (11.5-14.5); White Blood Count 12.1 K/mm3 (4.5-10.0)
[2021-10-18 00:40] LABS: Alanine Aminotransferase 26 U/L (4-35); Albumin Level 4.4 g/dL (3.5-5.1); Alkaline Phosphatase 65 U/L (38-126); Anion Gap 11 mmol/L (8-16); Aspartate Amino Transferase 29 U/L (14-36); Bilirubin,Total 0.3 mg/dL (0.2-1.3); Blood Urea Nitrogen 10 mg/dL (7-17); Calcium 9.7 mg/dL (8.4-10.2); Carbon Dioxide 25 mmol/L (22-30); Chloride 98 mmol/L (98-107); Estimated CRCL calculation 94 ml/min; Estimated Glomerular Filt Rate > 60; Glucose 117 mg/dL (65-110); Lipase 46 U/L (23-300); Potassium 4.5 mmol/L (3.4-5.0); Sodium 134 mmol/L (137-145)
[2021-10-18 01:16] VITALS: BP 129/85; PULSE 97; RESP 18; O2SAT 100
== END 2021-10-18 01:20 | disposition home or self-care (01) ==
PROVIDERS: Emergency Provider General Practice; PCP Nurse Practitioner Family
DX: N20.0 Calculus of kidney (principal); R10.9 Unspecified abdominal pain
CPT/HCPCS: 36415; 74018; 74176; 80053; 81001; 81025; 83690; 85025; 96361; 96374; 96375; 99284; J2270; J2405; J7120

== ENCOUNTER 2022-02-10 14:56 | Outpatient (CLI) | payer OTHER, SELFPAY ==
--- NOTE | ~2022-02-10 | MR_ITS ---
EXAMINATION: MR cervical spine wo con DATE: 02/10/2022 15:53 INDICATION: Neck pain TECHNIQUE: Magnetic resonance imaging (MRI) of the cervical spine was performed without intravenous c ontrast. Sequences included sagittal T2-weighted FSE, sagittal T2-weighted FS FSE, sagittal T1-weight ed FSE, axial MERGE and axial T2-weighted FSE. COMPARISON: None FINDINGS: There is mild motion artifact on a few sequences which does not significantly limit evaluation. Thinn ing of the normal cervical lordosis which is likely positional but could be seen with muscle spasm. N o spondylolisthesis. Vertebral body heights are normal. Bone marrow signal intensity is normal. Int ervertebral disc heights and signal are normal. Cord signal intensity is normal. Mucous retention cys t at the sphenoid sinus. Cervical soft tissues are unremarkable. The following disc levels are specif ically discussed: C2-C3: The disc does not extend beyond the endplate margin. There is no uncovertebral joint osteoarth ritis. There is mild bilateral facet joint osteoarthritis. There is no neural foraminal stenosis. The re is no central canal stenosis. C3-C4: Disc is mildly bulging. There is no uncovertebral joint osteoarthritis. There is no facet join t osteoarthritis. There is mild bilateral, left greater than right neural foraminal stenosis. There i s no central canal stenosis. C4-C5: The disc does not extend beyond the endplate margin. There is mild left uncovertebral joint os teoarthritis. There is mild bilateral, right greater than left facet joint osteoarthritis. There is m ild left neural foraminal stenosis. There is no central canal stenosis. C5-C6: Disc is mildly bulging. There is mild bilateral uncovertebral joint osteoarthritis. There is m ild bilateral facet joint osteoarthritis. There is minimal left neural foraminal stenosis. There is n o central canal stenosis. C6-C7: Disc is minimally bulging. There is mild bilateral uncovertebral joint osteoarthritis. There i s mild bilateral facet joint osteoarthritis. There is mild left neural foraminal stenosis. There is n o central canal stenosis. C7-T1: The disc does not extend beyond the endplate margin. There is no uncovertebral joint osteoarth ritis. There is mild bilateral facet joint osteoarthritis. There is no neural foraminal stenosis. The re is no central canal stenosis. IMPRESSION: 1. Minimal to mild cervical spondylosis. Reviewed, dictated and finalized at [facility].
== END 2022-02-10 14:57 | disposition home or self-care (01) ==
PROVIDERS: PCP Nurse Practitioner Family; Visit Provider Internal Medicine Rheumatology
DX: M54.2 Cervicalgia (principal); M47.812 Spondylosis without myelopathy or radiculopathy, cervical region
CPT/HCPCS: 72141

== ENCOUNTER 2022-10-23 10:07 | Outpatient (CLI) | payer OTHER, SELFPAY ==
[2022-10-23 10:36] LABS: Basophils Percent Auto 0.4 % (0.2-1.2); Eosinophils Absolute Auto 0.6 K/mm3 (0-0.3); Eosinophils Percent Auto 8.2 % (0-4.4); Immature Granulocyte Absolute 0.02 K/mm3 (0.00-0.031); Immature Granulocyte Percent A 0.3 % (0-0.5); Lymphocytes Absolute Auto 2.29 K/mm3 (0.9-3.2); Lymphocytes Percent Auto 30.1 % (18.3-44.2); Mean Corpuscular HGB Conc 32.4 g/dl (32-36); Mean Corpuscular Hemoglobin 28.7 pg (26-34); Mean Corpuscular Volume 88.5 fl (80-100); Mean Platelet Volume 9.6 fl (7.4-10.4); Monocytes Absolute Auto 0.8 K/mm3 (0.1-0.6); Monocytes Percent Auto 11.1 % (2.6-8.5); Neutrophils Absolute Auto 3.8 K/mm3 (1.3-6.7); Neutrophils Percent Auto 49.9 % (45.5-73.1); Platelet Count Result 299 k/mm3 (150-375); Red Blood Count 4.18 M/mm3 (4.2-5.4); Red Cell Distribution Width 13.5 % (11.5-14.5); White Blood Count 7.6 K/mm3 (4.5-10.0)
[2022-10-23 11:12] LABS: Anion Gap 7 mmol/L (8-16); Blood Urea Nitrogen 13 mg/dL (7-17); Carbon Dioxide 25 mmol/L (22-30); Chloride 106 mmol/L (98-107); Cholesterol 281 mg/dL (0-200); Estimated Glomerular Filt Rate > 60; Glucose 108 mg/dL (65-110); Potassium 4.2 mmol/L (3.4-5.0); Sodium 138 mmol/L (137-145); Triglycerides 169 mg/dL (<150)
[2022-10-23 11:23] LABS: LDL Cholesterol Direct 128 mg/dL
[2022-10-23 13:00] LABS: HDL Direct 124 mg/dL
[2022-10-23 13:25] LABS: Hemoglobin A1C 5.3 % (<5.7)
== END 2022-10-23 10:08 | disposition home or self-care (01) ==
LOC: ANHLAB 10:11
PROVIDERS: PCP Nurse Practitioner Family; Visit Provider Internal Medicine Cardiovascular Disease
DX: R07.89 Other chest pain (principal); D86.9 Sarcoidosis, unspecified; R73.9 Hyperglycemia, unspecified; E78.5 Hyperlipidemia, unspecified
CPT/HCPCS: 36415; 80048; 80061; 83036; 84443; 85025

== ENCOUNTER 2022-11-11 07:57 | Outpatient (CLI) | payer OTHER, SELFPAY ==
--- NOTE | ~2022-11-11 | CT_ITS ---
CT Scan of the Chest without Contrast: Clinical Indication: Sarcoidosis Technique: Contiguous sections were acquired throughout the chest without intravenous contrast. Dose reduction technique was used on this scan by utilizing automated exposure control and iterative recon struction technique. The dose-length product (DLP) was 149.08 mGy-cm. COMPARISON: 10/07/2021 Findings: No definite enlarged mediastinal lymph nodes identified on the current exam. No aortic aneurysm. The mediastinal soft tissues appear normal. There is no evidence of pleural or pericardial effusion. 3 mm groundglass nodule noted in the peripheral right lung apex (axial image 32). No other pulmonary abnormality seen. Images through the upper abdomen reveal no abnormalities. Impression: 3 mm right apical pulmonary nodule, similar to prior exam. No other significant abnormality seen. Reviewed, dictated and finalized at [facility]. [facility] [employer] [facility] [employer] Impression: 3 mm right apical pulmonary nodule, similar to prior exam. No other significant abnormality seen.
--- NOTE | 2022-11-11 12:18 | WPDPFTINT ---
PFT Procedure Performed PFT Procedure Performed Spirometry with Pre/Post Bronchodilator Plethysmography (Lung Vol) Diffusing Cap (DLCO) Flow Vol Loop PFT Interpretation Lung volumes were measured with the body plethysmography method. Lung volumes are unremarkable. Spirometry showed normal expiratory flow rates and a normal FEV1 to FVC ratio of 79%. Following administration of a bronchodilator there was no significant increase in expiratory flow rates. Lung diffusion capacity is within the normal range at 83% predicted. The flow-volume loop is unremarkable. In comparison to previous study in October of 2021, there has been no significant change in post-bronchodilator FVC, FEV1 or in lung diffusion capacity. Impression: Spirometry, lung volumes, and lung diffusion capacity wall within the normal range.
== END 2022-11-11 07:58 | disposition home or self-care (01) ==
PROVIDERS: PCP Nurse Practitioner Family; Visit Provider Nurse Practitioner
DX: D86.0 Sarcoidosis of lung (principal); R91.1 Solitary pulmonary nodule
CPT/HCPCS: 71250; 94060; 94726; 94729

== ENCOUNTER 2023-06-05 00:53 | Day surgery (SDC) | payer OTHER, SELFPAY ==
[2023-05-26 09:40] VITALS: BMI 29.6
[2023-06-05 08:41] VITALS: BP 121/76; PULSE 78; RESP 20; TEMP 36.5; O2SAT 100
[2023-06-05] MEDS: LACTATED RINGERS 1,000 ML 150 ML IV CONT (08:50)
--- NOTE | 2023-06-05 09:04 | WPDANESEPPF ---
Anes - Initial Pre Proc Eval Procedure: Operation Date: 06/05/23 09:30 Proposed Procedures p Esophagogastroduodenoscopy - Desean Manuel MD Date/Time: 06/05/23 09:04 Surgeon: Desean Manuel MD Pre Op Diagnosis: dysphagia Patient Data Age: 37 Gender: F Height: 1.63 m Weight: 97.4 kg Last Vital Signs Temp 97.7 F 06/05/23 08:41 Pulse 78 06/05/23 08:41 Resp 20 06/05/23 08:41 BP 121/76 06/05/23 08:41 Pulse Ox 100 06/05/23 08:41 O2 Del Method Room Air 06/05/23 08:41 Allergies Allergy/AdvReac Type Severity Reaction Status Date / Time No Known Allergies Allergy Mild Verified 06/05/23 08:40 Home Medications Medication Instructions Recorded Confirmed Type drospirenone 3 mg-ethinyl 1 tablet PO DAILY 28 days #84 tabs 05/18/23 05/26/23 Rx estradiol 0.03 mg tablet (Nat) loratadine 10 mg tablet 10 mg PO DAILY PRN Allergy Symptoms 05/26/23 05/26/23 History montelukast 10 mg tablet 10 mg PO DAILY 05/26/23 05/26/23 History Patient hx anesthesia problems: none Family hx anesthesia problems: none Results Review: All pre-operative results and documents have been reviewed as part of the pre-operative evaluation. 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 Gender identity (if verbalized by the patient): Female Sexual Orientation (if Verbalized by the Patient): Straight or Heterosexual Spiritual care concerns: No Anes - Eval Final PreProcedure Day of Procedure 06/05/23 09:04 Patient weight: obese Heart: regular rate and rhythm Lungs: clear to auscultation Airway: Mallampati scale class II Neurological: alert and oriented Last oral intake: >/= 8 hours ASA classification: II Emergent: no Anesthetic plan: proceed Anesthesia type and monitoring: general GIVS and standard monitoring Results Review: All pre-operative results and documents have been reviewed as part of the pre-operative evaluation. Informed Consent: The patient's anesthetic plan and its attendant risks and benefits were discussed with the patient/family/POA. Questions were solicited and answers provided to the satisfaction of the patient/family/POA.
--- NOTE | 2023-06-05 09:18 | WPDHPUPDATE1 ---
History and Physical Update Update Date/Time: 06/05/23 09:18 History and Physical has been reviewed, including an updated exam of the patient. There are NO changes in the patient's condition. Risks, benefits, and alternatives have been discussed and questions answered. Patient agrees to proceed with procedure.
[2023-06-05 09:34] VITALS: BP 114/75; PULSE 88; RESP 20; O2SAT 100
[2023-06-05 09:44] VITALS: BP 122/80; PULSE 72; RESP 20; O2SAT 100
[2023-06-05 09:54] VITALS: BP 113/77; PULSE 74; RESP 17; O2SAT 100
== END 2023-06-05 10:07 | disposition home or self-care (01) ==
PROVIDERS: PCP Nurse Practitioner Family; Visit Provider Internal Medicine Gastroenterology
PROC: 0DJ08ZZ Inspection of Upper Intestinal Tract, Via Natural or Artificial Opening Endoscopic (ICD-10-PCS; CPT 43235; principal; 2023-06-05 09:30)
DX: K22.2 Esophageal obstruction (principal); K20.0 Eosinophilic esophagitis; E66.9 Obesity, unspecified; Z68.36 Body mass index [BMI] 36.0-36.9, adult
CPT/HCPCS: 43249; 43239; 88305; C1726; J2704; J7120

== ENCOUNTER 2024-04-24 08:02 | Emergency (ER) | payer OTHER, SELFPAY ==
[2024-04-24 08:17] VITALS: BP 114/76; PULSE 78; RESP 16; TEMP 36.6; O2SAT 100
--- NOTE | 2024-04-24 08:34 | ED.SKABFB ---
HPI - Skin/Abscess/Foreign Bdy General Chief complaint: Skin/Abscess/Foreign Body Stated complaint: rash all over body Time Seen by Provider: 04/24/24 08:35 Source: patient, RN notes reviewed and old records reviewed Mode of arrival: ambulatory Limitations: no limitations History of Present Illness HPI narrative: patient presents with 2-3 day history of itchy rash that is spreading. She does report that she was cleaning her barn, noted some poison emanuel. She reports that she has never reacted to poison emanuel in the past. She has been trying calamine lotion and Benadryl, poor results. She denies any other allergic symptoms. No wheezing or shortness of breath. No swelling in the face. Related Data Home Medications Medication Instructions Recorded Confirmed montelukast 10 mg tablet 10 mg PO DAILY 12/02/23 04/24/24 Allergies Allergy/AdvReac Type Severity Reaction Status Date / Time No Known Allergies Allergy Mild Verified 04/24/24 08:15 Review of Systems Review of Systems: All systems reviewed & are unremarkable except as noted in HPI and below Constitutional: Constitutional: Reports no additional constitutional complaints ENT: Reports system reviewed and no additional complaints, except as documented Cardiovascular: Cardiovascular: Reports no additional cardiovascular complaints Respiratory: Respiratory: Reports no additional respiratory complaints Gastrointestinal: Gastrointestinal: Reports no additional gastrointestinal complaints Integumentary/Breasts: Skin/Breast: Reports rash Comments: Right-side of face, arms, right leg, left side of neck PMFSH Past Medical History Medical History Chest wall pain Dysphagia Eosinophilic esophagitis Esophageal ring Hyperlipidemia Obese Ovarian cyst Pre-diabetes Pulmonary sarcoidosis Sarcoidosis Surgical History Surgical History H/O oophorectomy Family History Family History Father Alcoholism Mother Diabetes mellitus Heart disease Sibling Heart disease Grandparent Diabetes mellitus Cancer Other Alzheimer's disease Cerebrovascular accident Hypertension Social History Social History Smoking status: Never smoker Alcohol intake: current Alcohol use details: occasionally 6 -12 a year Substance use: never Substance use type: does not use Lack of Transportation: No Lack of Food: Never True Current Housing: I Have Housing Concerned About Future Housing: No Difficulty Paying Gas/Electric Bills: No Difficulty Paying for Meds: No Currently Unemployed: No Education: Bachelor's Degree Difficulty w/ Childcare or Family Care: No Living arrangements: with family Occupation/Education: occupation 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 There is no relevant family history pertinent to the patient complaint. Exam Const: General: cooperative, no acute distress, alert and awake Orientation/consciousness: oriented to person, oriented to place and oriented to time HENMT: Head: normal to inspection Resp: Effort & Inspection: normal respiratory effort and able to speak in complete sentences Auscultation: clear to auscultation bilaterally, no crackles, no rales, no rhonchi and no wheezes Cardio: Palpation: normal PMI Rate: regular rate Rhythm: regular rhythm Heart sounds: S1 normal heart sound present and S2 normal heart sound present Skin: Full body images: 1. rash 2. rash 3. rash
== END 2024-04-24 08:49 | disposition home or self-care (01) ==
PROVIDERS: Emergency Provider Nurse Practitioner Family; PCP Nurse Practitioner Family
DX: L23.7 Allergic contact dermatitis due to plants, except food (principal); K20.0 Eosinophilic esophagitis; E78.5 Hyperlipidemia, unspecified; E66.9 Obesity, unspecified; Z68.28 Body mass index [BMI] 28.0-28.9, adult; R73.03 Prediabetes; D86.0 Sarcoidosis of lung
CPT/HCPCS: 99213; G0463